=== PATIENT | male | born 2000 | race Caucasian/White ===

== ENCOUNTER → 2021-09-11 12:56 | Outpatient (CLI) | payer BC, SELFPAY ==
--- NOTE | ~2021-09-11 | MR_ITS ---
EXAMINATION: MR knee RT wo con DATE: 09/11/2021 13:35 INDICATION: Right knee pain. TECHNIQUE: Magnetic resonance imaging (MRI) of the right knee was performed without intravenous contr ast. Sequences included axial PD-weighted FS FSE, coronal PD-weighted FSE and PD-weighted FS FSE, sag ittal PD-weighted FSE, and sagittal T2-weighted FS FSE. COMPARISON: None. FINDINGS: Medial compartment: Medial meniscus is normal. Medial compartment cartilage is normal. Lateral compartment: There is a radial tear of medial meniscus at the junction of the body and anterior horn. Lateral comp artment cartilage is normal. Patellofemoral compartment: Patellar cartilage is normal. There is cartilage surface irregularity of trochlea. Ligaments and tendons: There is a complete tear of anterior cruciate ligament. Posterior cruciate ligament is intact. There is a sprain of medial collateral ligament characterized by increased signal and surrounding edema. Th ere is a mild strain of proximal fibular collateral ligament characterized by increased signal. The p atellar tendon is normal. Fluid: There is a moderate-sized knee joint effusion. There is trace fluid in a Montaño's cyst. There is edema at the junction of the subjacent fat and fascia anteriorly. Osseous/other: There is bone marrow edema in posterior aspect of medial tibial condyle and at the notch of lateral f emoral condyle, consistent with contusions. IMPRESSION: 1. Complete tear of anterior cruciate ligament. 2. Radial tear of lateral meniscus. 3. Mild trochlear chondrosis. 4. Moderate-sized knee joint effusion. 5. Low-grade sprains of medial collateral ligament and fibular collateral ligament. Reviewed, dictated and finalized at location [facility]. IMPRESSION: 1. Complete tear of anterior cruciate ligament. 2. Radial tear of lateral meniscus. 3. Mild trochlear chondrosis. 4. Moderate-sized knee joint effusion. 5. Low-grade sprains of medial collateral ligament and fibular collateral ligam ent.
== END ==
PROVIDERS: PCP Internal Medicine; Visit Provider Physician Assistant Medical
DX: M25.561 Pain in right knee (principal); M25.461 Effusion, right knee; S83.511A Sprain of anterior cruciate ligament of right knee, initial encounter; S83.281A Other tear of lateral meniscus, current injury, right knee, initial encounter; M22.2X1 Patellofemoral disorders, right knee; S83.411A Sprain of medial collateral ligament of right knee, initial encounter
CPT/HCPCS: 73721

== ENCOUNTER 2023-08-06 10:09 | Outpatient (CLI) | payer OTHER, BC, SELFPAY ==
--- NOTE | ~2023-08-06 | CT_ITS ---
CT scan of the Neck Technique: 2.5 mm axial scans were obtained through the neck after intravenous administration of 75 c c Omnipaque 350. Coronal and sagittal reconstructions of the neck were obtained. Dose reduction techn ique was used on this scan by utilizing automated exposure control and iterative reconstruction techn ique. The dose-length product (DLP) was 475.33 mGy-cm. Clinical History: Lymphadenopathy Findings: There is no evidence of any significant cervical lymphadenopathy. Several small, nonenlarged jugulo- digastric and posterior cervical lymph nodes are noted bilaterally. Parapharyngeal spaces appear norm al bilaterally. The parotid and submandibular glands appear normal. The pharyngeal mucosal spaces appear normal. No soft tissue masses are seen in the neck. The thyroid gland appears normal. Images of the lung apices reveal no abnormalities. Impression: No significant abnormalities noted. Reviewed, dictated and finalized at [facility]. Impression: No significant abnormalities noted.
== END 2023-08-06 10:10 | disposition home or self-care (01) ==
PROVIDERS: PCP Physician Assistant Medical; Visit Provider Physician Assistant Medical
DX: R59.1 Generalized enlarged lymph nodes (principal)
CPT/HCPCS: 70491; Q9967